=== PATIENT | female | born 1970 | race Two or more races ===

== ENCOUNTER 2017-06-14 08:41 | Outpatient (CLI) | payer OTHER | END 2017-06-14 09:02 | disposition home or self-care (01) | LOC: RAD 501 08:41 | DX: J40 Bronchitis, not specified as acute or chronic (principal); R05 Cough ==

== ENCOUNTER 2017-12-26 14:14 | Outpatient (CLI) | payer OTHER | END 2017-12-26 14:30 | disposition home or self-care (01) | LOC: RAD 14:14 | DX: M25.561 Pain in right knee (principal) ==

== ENCOUNTER 2024-07-24 12:32 | Outpatient (CLI) | payer OTHER | END 2024-07-24 12:51 | disposition home or self-care (01) | LOC: MAMO-SONO 12:32 | PROVIDERS: ATTEND Obstetrics & Gynecology | DX: N60.11 Diffuse cystic mastopathy of right breast (principal); N60.12 Diffuse cystic mastopathy of left breast ==

== ENCOUNTER 2025-01-13 08:43 | Outpatient (CLI) | payer OTHER | END 2025-01-13 08:57 | disposition home or self-care (01) | LOC: SONOGRAMA 08:43 | PROVIDERS: ATTEND Obstetrics & Gynecology | DX: N95.0 Postmenopausal bleeding (principal); N84.0 Polyp of corpus uteri ==